=== PATIENT | female | born 1985 | race Caucasian/White ===

== ENCOUNTER 2019-04-16 17:50 | Emergency (ER) | payer MEDICAID ==
[~2019-04-16] VITALS: Ht 154.9 cm; Wt 80.3 kg
[2019-04-16 18:04] VITALS: Ht 154.9 cm; Wt 80.3 kg
[2019-04-16 18:17] LABS: BASOPHIL % 0.5 % (0-2)
[2019-04-16 18:23] LABS: RED CELL DISTRIBUTION WIDTH 12.6 % (11.5-14.5)
[2019-04-16 18:25] LABS: CALCIUM 9.7 mg/dL (8.5-10.1); CARBON DIOXIDE 28.7 mmol/L (21-32); CHLORIDE SERUM 102 mmol/L (98-107); CREATININE SERUM 0.8 mg/dL (0.6-1.0); GFR1 > 60 mL/min; GLUCOSE SERUM 109 mg/dL (74-106); PLATELET COUNT 526 x10^3mcL (130-400); POTASSIUM SERUM 4.5 mmol/L (3.5-5.1); SODIUM SERUM 138 mmol/L (136-145)
[2019-04-16 18:30] LABS: ALBUMIN 3.6 g/dL (3.4-5.0); ALKALINE PHOSPHATASE 85 U/L (46-116); ALT/SGPT 25 U/L (14-59); AST/SGOT 9 U/L (15-37); BILIRUBIN TOTAL 0.18 mg/dL (0.20-1.00)
[2019-04-16 18:34] LABS: TOTAL PROTEIN, SERUM 8.3 g/dL (6.4-8.2)
[2019-04-16 21:28] VITALS: BP 105/65
== END 2019-04-16 21:12 | disposition home or self-care (01) ==
LOC: ED 17:50
DX: K80.20 Calculus of gallbladder without cholecystitis without obstruction (principal)
CPT/HCPCS: 36415; Q0092